=== PATIENT | female | born 1970 | race Caucasian/White ===

== ENCOUNTER → 2023-08-10 | Outpatient (CLI) | payer OTHER | LOC: M PLAIMG 10:56 | PROVIDERS: ATTEND Pain Medicine Interventional Pain Medicine | DX: G57.72 Causalgia of left lower limb (principal); M47.814 Spondylosis without myelopathy or radiculopathy, thoracic region; R93.7 Abnormal findings on diagnostic imaging of other parts of musculoskeletal system ==

== ENCOUNTER → 2023-08-25 | Outpatient (CLI) | payer OTHER ==
[~2023-08-25] MED LIST: PROHANCE 279.3MG/ML 15ML VIAL As Ordered ONE; PROHANCE 279.3MG/ML 5ML VIAL As Ordered ONE
== END ==
LOC: M RAD 14:53
PROVIDERS: ATTEND Pain Medicine Interventional Pain Medicine
DX: G57.72 Causalgia of left lower limb (principal); M50.223 Other cervical disc displacement at C6-C7 level; M51.24 Other intervertebral disc displacement, thoracic region
CPT/HCPCS: 72157; A9576

== ENCOUNTER → 2023-09-15 | Outpatient (CLI) | payer OTHER | LOC: M PLAIMG 06:47 | PROVIDERS: ATTEND Pain Medicine Interventional Pain Medicine | DX: G57.72 Causalgia of left lower limb (principal); M47.816 Spondylosis without myelopathy or radiculopathy, lumbar region; M48.061 Spinal stenosis, lumbar region without neurogenic claudication ==